=== PATIENT | female | born 2000 | race Caucasian/White ===

== ENCOUNTER 2019-12-22 12:49 | Emergency (ER) | payer MEDICAID ==
[~2019-12-22] VITALS: Ht 162.6 cm; Wt 91.5 kg
--- NOTE | 2019-12-22 13:34 | NUR ---
FEMALE, CURRENTLY 13 WEEKS W TWINS. ESTIMATED LMP 08/26. CONFIRMED IUP BY US AT MANAGER CODING'S OFFICE, "A WHILE AGO". ARRIVES WITH SO WITH COMPLAINT OF INTERMITTENT PELVIC CRAMPING AND LIGHT VAGINAL DC AND BLEEDING X TWO DAYS. BP/SPO2 MONITOR IN PLACE. SO AT BEDSIDE.
--- NOTE | 2019-12-22 13:36 | NUR ---
UA COLLECTED AND SENT TO LAB
[2019-12-22 14:03] LABS: MICROSCOPIC INDICATED
[2019-12-22 14:15] LABS: BASOPHILS # (AUTO) 0.03 x10^3/uL (0-0.1); BASOPHILS % (AUTO) 0 % (0-1); EOSINOPHILS # (AUTO) 0.08 x10^3/uL (0-0.4); EOSINOPHILS % (AUTO) 1 % (1-7); LYMPHOCYTES # (AUTO) 2.56 x10^3/uL (1-3.4); LYMPHOCYTES % (AUTO) 24 % (22-44); MD NO; MEAN CORPUSCULAR HEMOGLOBIN 30.3 pg (27.0-34.8); MEAN CORPUSCULAR HGB CONC 33.6 g/dL (32.4-35.8); MEAN PLATELET VOLUME 9.2 fL (7.4-10.4); MONOCYTES # (AUTO) 0.53 x10^3/uL (0.2-0.8); MONOCYTES % (AUTO) 5 % (2-9); NEUTROPHILS # (AUTO) 7.31 x10^3/uL (1.8-6.8); NEUTROPHILS % (AUTO) 70 % (42-75); PLATELET COUNT 257 x10^3/uL (130-400); RED BLOOD COUNT 4.44 x10^6/uL (3.82-5.3); RED CELL DISTRIBUTION WIDTH 12.6 % (9.6-15.2)
[2019-12-22 14:20] LABS: ALBUMIN 3.2 g/dL (3.4-5.0); ANION GAP 4 mmol/L (5-15); CALCIUM 9.6 mg/dL (8.5-10.1); CHLORIDE 107 mmol/L (98-107); CREATININE 0.59 mg/dL (0.55-1.02)
[2019-12-22 14:44] VITALS: BP 114/58
--- NOTE | 2019-12-22 15:03 | NUR ---
DC EDUCATION PROVIDED, PT DEMONSTRATES UNDERSTANDING. PT AMBULATED STEADILY TO DC WITH RN AND SO
== END 2019-12-22 15:05 | disposition home or self-care (01) ==
LOC: ED 15:00
DX: O23.12 Infections of bladder in pregnancy, second trimester (principal); O21.9 Vomiting of pregnancy, unspecified; O46.92 Antepartum hemorrhage, unspecified, second trimester; Z3A.15 15 weeks gestation of pregnancy
CPT/HCPCS: 36415; 76815; 80048; 81001; 82040; 84702; 85025; 86901; 87086; 87147; 99284